=== PATIENT | male | born 1950 | race Caucasian/White ===

== ENCOUNTER 2024-01-14 09:23 | Emergency (ER) | payer MEDICARE ==
[2024-01-14 10:16] LABS: #Basophils 0.1 thou/uL (0.0-0.2); #Eosinphils 0.2 thou/uL (0.0-0.7); #Monocytes 0.5 thou/uL (0.11-0.59); #Neutrophils 3.9 thou/uL (1.40-6.50); %Basophils 0.8 % (0.0-1.0); %Eosinophils 2.9 % (0.0-10.0); %Lymphocytes 24.1 % (21.0-51.0); %Monocytes 8.6 % (0.0-10.0); %Neutrophils 63.3 % (42.0-75.0); Hematocrit 44.9 % (42.0-52.0); Hemoglobin 14.9 g/dL (14.0-18.0); Mean Corpuscular HGB CONC 33.2 g/dL (32.0-36.0); Mean Corpuscular Hemoglobin 31.5 pg (27.0-31.0); Mean Corpuscular Volume 94.9 fl (78.0-98.0); Mean Platelet Volume 9.5 fL (7.4-10.4); Platelet Count 236 10x3/uL (130-400); RBC Distribution Width 13.1 % (11.5-14.5); Red Blood Cell (RBC) Count 4.73 mill/uL (4.70-6.10); White Blood Cell (WBC) Count 6.2 10x3/uL (4.8-10.8)
[2024-01-14 10:32] LABS: Prothrombin Time 83.8 sec (12.0-14.7)
[2024-01-14 10:36] LABS: ALT (SGPT) 17 U/L (8-55); AST (SGOT) 21 U/L (5-34); Albumin 4.2 g/dL (3.4-4.8); Alkaline Phosphatase 72 U/L (40-110); Anion Gap 11 mmol/L (10-20); BUN (Urea Nitrogen) 14 mg/dL (8.4-25.7); Bilirubin, Total 0.6 mg/dL (0.2-1.2); Calc. Creatinine Clearance 0 mL/min (70-130); Calcium 9.3 mg/dL (7.8-10.44); Carbon Dioxide 26 mmol/L (23-31); Chloride 105 mmol/L (98-107); Estimated GFR 75; Glucose 116 mg/dL (83-110); Potassium 4.4 mmol/L (3.5-5.1); Protein, Total 7.2 g/dL (5.8-8.1); Sodium 138 mmol/L (136-145)
[2024-01-14 10:39] LABS: INR-International Normal Ratio 10.5; PTT 191.3 sec (22.9-36.1)
[2024-01-14 11:07] LABS: Bacteria/HPF None Seen HPF (None Seen); Bilirubin Negative (Negative); Blood, Urine 3+ (Negative); CAUTI Indications for Culture Acute Hematuria; Clarity Turbid (Clear); Glucose, Urine (Dipstick) Normal (Negative); Ketone, Urine Negative (Negative); Leukocyte Negative Leu/uL (Negative); Nitrite Negative (Negative); Protein, Urine (Dipstick) 20 mg/dL (Neg-Trace); RBC/HPF Greater than 50 HPF (0-3); Specific Gravity, Urine 1.019 (1.002-1.036); Squamous Epithelial None Seen HPF (0-3); Urobilinogen Normal mg/dL (Less than 2); WBC/HPF 0-3 HPF (0-3); pH, Urine 6.5 (5.0-9.0)
[2024-01-14 11:09] LABS: Urine Culture Reflex No No
== END 2024-01-14 12:18 | disposition home or self-care (01) ==
LOC: ERS 09:23
DX: R31.9 Hematuria, unspecified (principal); R79.1 Abnormal coagulation profile
CPT/HCPCS: 36415; 80053; 81001; 85025; 85610; 85730; 99283

== ENCOUNTER 2025-06-25 09:25 | Observation (INO) | payer MEDICARE ==
[2025-06-25] MEDS ORDERED: Ketamine In 0.9 % NaCl 50 MG/5 ML SYRINGE ONE (09:34)
[2025-06-25] MEDS ORDERED: CEFAZOLIN 2 GM VIAL ONE (09:36)
[2025-06-25 10:08] LABS: #Basophils 0.06 10x3/uL (0.0-0.2); #Eosinophils 0.18 10x3/uL (0.0-0.7); #Monocytes 0.85 10x3/uL (0.11-0.59); #Neutrophils 8.31 10x3/uL (1.40-6.50); %Basophils 0.5 % (0.0-1.0); %Eosinophils 1.5 % (0.0-10.0); %Lymphocytes 20.5 % (21.0-51.0); %Monocytes 7.1 % (0.0-10.0); %Neutrophils 69.6 % (42.0-75.0); Hematocrit 39.1 % (42.0-52.0); Hemoglobin 13.4 g/dL (14.0-18.0); Mean Corpuscular Hemoglobin 31.5 pg (27.0-31.0); Mean Corpuscular Volume 91.8 fL (78.0-98.0); Platelet Count 260 10x3/uL (130-400); Red Blood Cell (RBC) Count 4.26 mill/uL (4.70-6.10); White Blood Cell (WBC) Count 11.93 10x3/uL (4.8-10.8)
[2025-06-25 10:31] LABS: ALT (SGPT) 17 U/L (Less than 45); AST (SGOT) 27 U/L (11-34); Albumin 3.9 g/dL (3.1-4.5); Alkaline Phosphatase 53 U/L (40-110); Anion Gap 14 mmol/L (10-20); BUN (Urea Nitrogen) 13 mg/dL (8.4-25.7); Bilirubin, Total 0.6 mg/dL (0.3-1.2); Calc. Creatinine Clearance 0 mL/min (70-130); Calcium 9.0 mg/dL (7.8-10.44); Carbon Dioxide 22 mmol/L (23-31); Chloride 108 mmol/L (98-107); Globulin 3.1 g/dL (2.4-3.5); Glucose 139 mg/dL (83-110); INR-International Normal Ratio 1.7; Lipase 31 U/L (8-78); Potassium 4.1 mmol/L (3.5-5.1); Prothrombin Time 20.0 sec (12.0-14.7); Sodium 140 mmol/L (136-145)
[2025-06-25 10:32] LABS: PTT 26.3 sec (22.9-36.1)
[2025-06-25] MEDS ORDERED: Ondansetron PF 4 MG/2 ML Vial ONE ×2 (10:36→16:04)
[2025-06-25] MEDS ORDERED: Lidocaine 1% w/Epinephrine 1:100K 20 ML VIAL ONE ×2 (11:01→12:00)
[2025-06-25] MEDS ORDERED: Boostrix 0.5 ML (Tdap) VIAL (>/=7 yrs of age) ONE (12:35)
[2025-06-25] MEDS ORDERED: HYDROmorphone 0.5 MG/0.5 ML SYRINGE ONE (12:35)
[2025-06-25] MEDS ORDERED: Bacitracin 1 PK ONE (14:04)
[2025-06-25] MEDS ORDERED: Iopamidol 370 76% 100 ML VIAL ONE ×2 (14:47→14:49)
[2025-06-25] MEDS ORDERED: Ondansetron PF 4 MG/2 ML Vial IVP PRN (16:58)
[2025-06-25] MEDS ORDERED: hydrALAZINE 20 MG/ML VIAL SLOW IVP PRN (16:58)
[2025-06-25] MEDS: Scopolamine 1 mg/72 hour Patch TD SCH (18:16)
[2025-06-25] MEDS: Metoclopramide HCl 10 MG (2 mL) VIAL IVP PRN (18:16)
[2025-06-25] MEDS: Acetaminophen/Codeine 30-300mg Tablet PO PRN (20:39)
[2025-06-25 22:48] VITALS: BMI 27.2
[2025-06-26 05:01] LABS: #Basophils 0.03 10x3/uL (0.0-0.2); #Eosinophils 0.04 10x3/uL (0.0-0.7); #Monocytes 1.34 10x3/uL (0.11-0.59); #Neutrophils 6.30 10x3/uL (1.40-6.50); %Basophils 0.3 % (0.0-1.0); %Eosinophils 0.4 % (0.0-10.0); %Lymphocytes 18.0 % (21.0-51.0); %Monocytes 14.2 % (0.0-10.0); %Neutrophils 66.9 % (42.0-75.0); Hematocrit 33.9 % (42.0-52.0); Hemoglobin 11.2 g/dL (14.0-18.0); Mean Corpuscular Hemoglobin 31.6 pg (27.0-31.0); Mean Corpuscular Volume 95.8 fL (78.0-98.0); Platelet Count 225 10x3/uL (130-400); Red Blood Cell (RBC) Count 3.54 mill/uL (4.70-6.10); White Blood Cell (WBC) Count 9.43 10x3/uL (4.8-10.8)
[2025-06-26 05:15] LABS: Anion Gap 13 mmol/L (10-20); BUN (Urea Nitrogen) 21 mg/dL (8.4-25.7); Calc. Creatinine Clearance 70 mL/min (70-130); Calcium 8.1 mg/dL (7.8-10.44); Carbon Dioxide 22 mmol/L (23-31); Chloride 109 mmol/L (98-107); Glucose 104 mg/dL (83-110); Potassium 4.2 mmol/L (3.5-5.1); Sodium 140 mmol/L (136-145)
[2025-06-26 08:18] VITALS: TEMP 97.9
[2025-06-26] MEDS: Bisacodyl 10 MG SUPP PR SCH (08:18)
[2025-06-26] MEDS: Senokot S 8.6-50 MG TAB PO SCH (08:18)
[2025-06-26] MEDS: Acetaminophen 325 MG TAB PO PRN (12:22)
[2025-06-26 14:23] VITALS: BP 104/61
== END 2025-06-26 16:00 ==
LOC: ERS 09:25 → SURG B 16:37 → INTOOBSV 16:37
PROVIDERS: ADMIT Surgery; ATTEND Surgery
DX: S32.018A Other fracture of first lumbar vertebra, initial encounter for closed fracture (principal); S32.028A Other fracture of second lumbar vertebra, initial encounter for closed fracture; S32.038A Other fracture of third lumbar vertebra, initial encounter for closed fracture; S31.821A Laceration without foreign body of left buttock, initial encounter; S01.01XA Laceration without foreign body of scalp, initial encounter; Z98.52 Vasectomy status; Z86.718 Personal history of other venous thrombosis and embolism; Z88.8 Allergy status to other drugs, medicaments and biological substances; V24.49XA Other motorcycle driver injured in collision with heavy transport vehicle or bus in traffic accident, initial encounter
CPT/HCPCS: 12004; 12035; 70450 ×2; 70496; 70498; 71045; 71260; 72125; 72170; 73080; 74177; 80048; 80053; 83690; 85025 ×2; 85610; 85730; 86850; 86900; 86901; 90471; 90715; 93005; 96374; 96375 ×2; 96376; 99285; G0378 ×3; G0390; J1171; J2405; J2550; J2765; J3010; J3490; J7030 ×2; Q9967; 36415

== ENCOUNTER 2025-07-13 12:45 | Outpatient (CLI) | payer MEDICARE | END 2025-07-13 12:46 | disposition home or self-care (01) | LOC: ULT 12:45 | PROVIDERS: ATTEND Internal Medicine Cardiovascular Disease | DX: I87.1 Compression of vein (principal); I82.502 Chronic embolism and thrombosis of unspecified deep veins of left lower extremity | CPT/HCPCS: 93970 ==